=== PATIENT | male | born 1950 | race Two or more races ===

== ENCOUNTER → 2017-04-23 | Outpatient (CLI) | payer OTHER ==
[2017-04-23 08:43] LABS: Basophils # (auto) 0.1 uL; Basophils % (auto) 1.8 % (0.0-2.0); Eosinophils # (auto) 0.4 uL; Eosinophils % (auto) 8.9 % (0.0-7.0); Hemoglobin 15.8 g/dL (13.5-17.5); Lymphocytes # (auto) 1.2 uL; Lymphocytes % (auto) 26.1 % (10.0-50.0); Mean Corpuscular Hemoglobin 32.4 pg (28.0-32.0); Mean Corpuscular Hgb Conc. 33.7 g/dL (32.0-36.0); Mean Corpuscular Volume 96.2 fL (80.0-100.0); Monocytes # (auto) 0.4 uL; Monocytes % (auto) 7.9 % (0.0-12.0); Neutrophils # (auto) 2.5 uL; Neutrophils % (auto) 55.3 % (37.0-80.0); Nucleated Red Blood Cells % 0.1 %; Platelet Count (auto) 174 10^3/uL (140-450); Red Blood Cells 4.89 10^6/uL (4.5-5.90); Red Cell Distribution Width 13.5 % (11.8-14.3); White Blood Cell 4.5 10^3/uL (4.4-10.8)
[2017-04-23 08:46] LABS: Urine Bacteria NONE SEEN /hpf (None Seen); Urine Blood Negative /uL (Negative); Urine Specific Gravity 1.019 (1.001-1.035); Urine WBC <1 /hpf (0 - 3)
[2017-04-23 09:26] LABS: Prostate Specific Antigen 0.86 ng/mL (0.0-4.0)
[2017-04-23 09:39] LABS: Albumin 4.1 g/dL (3.4-5.0); BUN/Creatinine Ratio 16.8; Bilirubin, Total 1.3 mg/dL (0.2-1.0); Calcium 9.2 mg/dL (8.5-10.1); Potassium 4.1 mmol/L (3.5-5.1); Total Protein 7.6 g/dL (6.4-8.2)
== END | disposition home or self-care (01) ==
LOC: LAB 08:23
PROVIDERS: ATTEND Family Medicine
DX: N41.9 Inflammatory disease of prostate, unspecified (principal); Z87.438 Personal history of other diseases of male genital organs
CPT/HCPCS: 36415; 80053; 80061; 81001; 82607; 84153; 84443; 85025

== ENCOUNTER → 2017-06-02 | Outpatient (CLI) | payer OTHER ==
[2017-06-02 12:27] LABS: Albumin 4.2 g/dL (3.4-5.0); BUN/Creatinine Ratio 16.2; Bilirubin, Total 1.6 mg/dL (0.2-1.0); Calcium 8.6 mg/dL (8.5-10.1); Potassium 3.9 mmol/L (3.5-5.1); Total Protein 7.3 g/dL (6.4-8.2)
[2017-06-03 10:09] LABS: Hepatitis B Surface Antibody Negative
[2017-06-03 10:11] LABS: Hepatitis A Total Antibody Positive
[2017-06-03 11:23] LABS: Hepatitis B Surface Antigen Negative (Negative)
[2017-06-03 11:24] LABS: Hepatitis B Core Total AB Negative; Hepatitis C Antibody Negative (Negative)
== END | disposition home or self-care (01) ==
LOC: LAB 11:29
PROVIDERS: ATTEND Family Medicine
DX: Z20.5 Contact with and (suspected) exposure to viral hepatitis (principal)
CPT/HCPCS: 36415; 80053; 86704; 86706; 86708; 86803; 87340

== ENCOUNTER → 2018-12-29 | Outpatient (CLI) | payer OTHER ==
[2018-12-29 07:51] LABS: Basophils # (auto) 0.1 uL; Basophils % (auto) 1.7 % (0.0-2.0); Eosinophils # (auto) 0.3 uL; Eosinophils % (auto) 6.5 % (0.0-7.0); Hemoglobin 15.1 g/dL (13.5-17.5); Lymphocytes % (auto) 25.4 % (10.0-50.0); Mean Corpuscular Hemoglobin 33.5 pg (28.0-32.0); Mean Corpuscular Hgb Conc. 34.3 g/dL (32.0-36.0); Mean Corpuscular Volume 97.6 fL (80.0-100.0); Monocytes # (auto) 0.4 uL; Monocytes % (auto) 8.9 % (0.0-12.0); Neutrophils # (auto) 2.3 uL; Neutrophils % (auto) 57.5 % (37.0-80.0); Nucleated Red Blood Cells % 0.1 %; Platelet Count (auto) 147 10^3/uL (140-450); Red Blood Cells 4.51 10^6/uL (4.5-5.90); Red Cell Distribution Width 13.4 % (11.8-14.3); White Blood Cell 3.9 10^3/uL (4.4-10.8)
[2018-12-29 08:31] LABS: Albumin 3.8 g/dL (3.4-5.0); BUN/Creatinine Ratio 22.1; Bilirubin, Direct 0.3 mg/dL (0-0.2); Bilirubin, Total 1.2 mg/dL (0.2-1.0); Calcium 8.5 mg/dL (8.5-10.1)
== END | disposition home or self-care (01) ==
LOC: LAB 07:10
DX: Z00.00 Encounter for general adult medical examination without abnormal findings (principal); E55.9 Vitamin D deficiency, unspecified; R36.1 Hematospermia; N40.0 Benign prostatic hyperplasia without lower urinary tract symptoms
CPT/HCPCS: 36415; 80053; 80061; 80076; 82306; 83036; 84153; 84443; 85025

== ENCOUNTER → 2019-01-04 | Outpatient (CLI) | payer OTHER | END | disposition home or self-care (01) | LOC: LAB 10:21 | DX: Z00.00 Encounter for general adult medical examination without abnormal findings (principal); E55.9 Vitamin D deficiency, unspecified; R36.1 Hematospermia; N40.0 Benign prostatic hyperplasia without lower urinary tract symptoms | CPT/HCPCS: 82270 ==

== ENCOUNTER → 2019-03-03 | Outpatient (CLI) | payer OTHER ==
[2019-03-03 09:12] LABS: Urine WBC None Seen /hpf (0 - 3)
[2019-03-03 09:51] LABS: Urine Bacteria NONE SEEN /hpf (None Seen); Urine Blood Negative /uL (Negative); Urine Mucus FEW (None Seen)
== END | disposition home or self-care (01) ==
LOC: LAB 09:03
PROVIDERS: ATTEND Internal Medicine
DX: R73.03 Prediabetes (principal); N40.0 Benign prostatic hyperplasia without lower urinary tract symptoms
CPT/HCPCS: 36415; 81001; 82043; 83036

== ENCOUNTER → 2019-03-10 | Outpatient (CLI) | payer OTHER | END | disposition home or self-care (01) | LOC: LAB 09:27 | PROVIDERS: ATTEND Urology | DX: R35.1 Nocturia (principal) | CPT/HCPCS: 87086 ==

== ENCOUNTER → 2019-04-06 | Outpatient (CLI) | payer OTHER | END | disposition home or self-care (01) | LOC: LAB 10:28 | PROVIDERS: ATTEND Urology | DX: R97.20 Elevated prostate specific antigen [PSA] (principal) | CPT/HCPCS: 84154 ==

== ENCOUNTER 2019-04-13 14:20 | Inpatient (IN) | payer OTHER ==
[~2019-04-13] VITALS: Ht 167.6 cm; Wt 75.2 kg
[2019-04-13] MEDS ORDERED: HYDROcodone-ACET 5/325MG TAB PO ONE (15:45)
[2019-04-13 16:19] LABS: Basophils # (auto) 0.1 uL; Basophils % (auto) 1.1 % (0.0-2.0); Eosinophils # (auto) 0.3 uL; Eosinophils % (auto) 6.4 % (0.0-7.0); Hematocrit 44.7 % (41.0-53.0); Hemoglobin 15.4 g/dL (13.5-17.5); Lymphocytes # (auto) 1.5 uL; Lymphocytes % (auto) 28.8 % (10.0-50.0); Mean Corpuscular Hemoglobin 33.2 pg (28.0-32.0); Mean Corpuscular Hgb Conc. 34.4 g/dL (32.0-36.0); Mean Corpuscular Volume 96.3 fL (80.0-100.0); Monocytes # (auto) 0.4 uL; Monocytes % (auto) 8.2 % (0.0-12.0); Neutrophils # (auto) 2.8 uL; Neutrophils % (auto) 55.5 % (37.0-80.0); Nucleated Red Blood Cells % 0.1 %; Platelet Count (auto) 148 10^3/uL (140-450); Red Blood Cells 4.64 10^6/uL (4.5-5.90); Red Cell Distribution Width 13.1 % (11.8-14.3); White Blood Cell 5.1 10^3/uL (4.4-10.8)
[2019-04-13 16:35] LABS: Albumin 3.9 g/dL (3.4-5.0); Calcium 8.6 mg/dL (8.5-10.1); Potassium 4.1 mmol/L (3.5-5.1)
[2019-04-13 16:37] LABS: BUN/Creatinine Ratio 21.7
[2019-04-13 16:40] LABS: Bilirubin, Total 1.3 mg/dL (0.2-1.0); Total Protein 7.4 g/dL (6.4-8.2)
[2019-04-13] MEDS ORDERED: MORPHINE SULFATE 4 MG/ML SYR/VIAL IV ONE (20:00)
[2019-04-13] MEDS ORDERED: ONDANSETRON HCL 4 MG/2 ML VIAL IV ONE (20:00)
[2019-04-13] MEDS ORDERED: TEMAZEPAM 15 MG CAP PO PRN (20:15)
[2019-04-13] MEDS ORDERED: ACETAMINOPHEN 325 MG TAB PO PRN (20:15)
[2019-04-13] MEDS ORDERED: ONDANSETRON HCL 4 MG/2 ML VIAL IV PRN (20:15)
[2019-04-13] MEDS ORDERED: NITROGLYCERIN 0.4 MG SL TAB SL PRN (21:00)
[2019-04-13] MEDS ORDERED: MORPHINE SULF INJ 2 MG/ML SYRINGE 1ML IV PRN (21:00)
[2019-04-13 22:30] VITALS: BP 106/47
[2019-04-13] MEDS: FAMOTIDINE 20 MG TAB PO SCH (22:35)
[2019-04-13 23:12] VITALS: BP 106/47
[2019-04-13] MEDS ORDERED: LISI2.5T47 PO (23:39)
[2019-04-14] VITALS (8 sets, daily range): BP systolic 105–134; BP diastolic 44–84
[2019-04-14] MEDS ORDERED: PNEUMOCOCCAL VACC POLYS 25 MCG/0.5 ML VIAL IM ONE (01:45)
[2019-04-14] MEDS: SUMAtriptan SUCCINATE 25 MG TAB PO PRN ×2 (02:35→04:42)
[2019-04-14 07:06] LABS: BUN/Creatinine Ratio 19.6; Calcium 8.7 mg/dL (8.5-10.1); Potassium 4.4 mmol/L (3.5-5.1)
[2019-04-14] MEDS ORDERED: LORazepam 2MG/ML-1ML VIAL IV ONE (10:30)
[2019-04-14] MEDS: FAMOTIDINE 20 MG TAB PO SCH ×2 (11:00→22:03)
[2019-04-15] VITALS (8 sets, daily range): BP systolic 90–121; BP diastolic 32–76
[2019-04-15] MEDS: FAMOTIDINE 20 MG TAB PO SCH ×2 (09:51→21:58)
[2019-04-15] MEDS: LISINOPRIL 5 MG TAB PO SCH (09:52)
[2019-04-15] MEDS ORDERED: HYDROcodone-ACET 5/325MG TAB PO PRN (10:45)
[2019-04-15] MEDS ORDERED: MORPHINE SULF INJ 2 MG/ML SYRINGE 1ML IV PRN (10:45)
[2019-04-15 21:27] LABS: Urine Bacteria NONE SEEN /hpf (None Seen); Urine Blood Negative /uL (Negative); Urine Specific Gravity 1.012 (1.001-1.035); Urine WBC <1 /hpf (0 - 3)
[2019-04-15] MEDS: SODIUM CHLORIDE 0.9% 1,000 ML IV SCH (21:57)
[2019-04-15] MEDS: METOCLOPRAMIDE HCL 10 MG TAB PO SCH (21:57)
[2019-04-16 05:00] VITALS: BP_SYST 100; BP_SYST 101; BP_SYST 92; BP_DIAS 59; BP_DIAS 70; BP_DIAS 73
[2019-04-16] MEDS: METOCLOPRAMIDE HCL 10 MG TAB PO SCH ×3 (05:39→21:43)
[2019-04-16 08:00] VITALS: BP 95/63
[2019-04-16 09:00] VITALS: BP 95/63
[2019-04-16] MEDS: LISINOPRIL 5 MG TAB PO SCH (10:00)
[2019-04-16] MEDS: FAMOTIDINE 20 MG TAB PO SCH ×2 (10:25→21:42)
[2019-04-16] MEDS: DexAMETHasone INJECTION 10 MG in D5W 5% 50 ML IV SCH (10:25)
[2019-04-16] MEDS: SODIUM CHLORIDE 0.9% 1,000 ML IV SCH ×2 (10:26→21:46)
[2019-04-16 13:00] VITALS: BP 109/67
[2019-04-16] MEDS ORDERED: LISINOPRIL 5 MG TAB PO ONE (14:15)
[2019-04-16] MEDS ORDERED: FAMOTIDINE 20 MG TAB PO ONE (14:15)
[2019-04-16 17:09] VITALS: BP 96/56
[2019-04-16 22:00] VITALS: BP 134/78
[2019-04-16] MEDS ORDERED: TIZANIDINE HCL 2 MG PO SCH (22:00)
[2019-04-17 05:00] VITALS: BP 108/72
[2019-04-17] MEDS: METOCLOPRAMIDE HCL 10 MG TAB PO SCH ×2 (05:38→14:00)
[2019-04-17] MEDS ORDERED: ADENOSINE 63 MG in GIVE UN-DILUTED 0 ML IV STA (08:40)
[2019-04-17 09:00] VITALS: BP 106/64
[2019-04-17] MEDS: LISINOPRIL 5 MG TAB PO SCH (10:00)
[2019-04-17 10:20] VITALS: BP 135/84
[2019-04-17] MEDS: DexAMETHasone INJECTION 10 MG in D5W 5% 50 ML IV SCH (12:02)
[2019-04-17] MEDS: FAMOTIDINE 20 MG TAB PO SCH (12:02)
[2019-04-17] MEDS: SODIUM CHLORIDE 0.9% 1,000 ML IV SCH (12:03)
[2019-04-17 13:00] VITALS: BP 113/68
[2019-04-17 13:24] VITALS: BP 113/68
[2019-04-17] MEDS ORDERED: TIZANIDINE HCL 2 MG PO SCH (22:00)
== END 2019-04-17 14:15 | disposition home or self-care (01) | DRG 103 ==
LOC: ER 14:20 → TELE 14:21 → TELE-CENTR 22:50
PROVIDERS: ADMIT Nurse Practitioner; ATTEND Internal Medicine
DX: G43.009 Migraine without aura, not intractable, without status migrainosus (principal); I10 Essential (primary) hypertension; G47.00 Insomnia, unspecified; R00.1 Bradycardia, unspecified; N40.0 Benign prostatic hyperplasia without lower urinary tract symptoms; F17.210 Nicotine dependence, cigarettes, uncomplicated
CPT/HCPCS: 36415; 70450; 70551; 71045; 78452; 80048; 80053; 81001; 82533; 83880; 84443; 84484; 85025; 85652; 93017; 93306; 93886; 96361; 96374; 96375; G0378; J0153; J1100; J2405; J7060

== ENCOUNTER → 2019-04-13 | Outpatient (CLI) | payer OTHER ==
[~2019-04-13] MED LIST: LISI2.5T47 PO
[2019-04-13 11:35] LABS: Albumin 3.9 g/dL (3.4-5.0); Calcium 8.7 mg/dL (8.5-10.1); Potassium 4.1 mmol/L (3.5-5.1)
[2019-04-13 11:39] LABS: BUN/Creatinine Ratio 18.9; Bilirubin, Total 1.7 mg/dL (0.2-1.0); Total Protein 7.3 g/dL (6.4-8.2)
== END | disposition home or self-care (01) ==
LOC: LAB 10:47
PROVIDERS: ATTEND Internal Medicine
DX: I10 Essential (primary) hypertension (principal); R07.9 Chest pain, unspecified; R73.03 Prediabetes; R06.02 Shortness of breath
CPT/HCPCS: 36415; 80053; 83880; 84443; 85379

== ENCOUNTER → 2019-06-19 | Outpatient (CLI) | payer OTHER | END | disposition home or self-care (01) | LOC: LAB 14:51 | PROVIDERS: ATTEND Urology | DX: N50.819 Testicular pain, unspecified (principal) | CPT/HCPCS: 84153 ==

== ENCOUNTER → 2019-07-05 | Outpatient (CLI) | payer OTHER | END | disposition home or self-care (01) | LOC: LAB 11:36 | PROVIDERS: ATTEND Internal Medicine | DX: N50.819 Testicular pain, unspecified (principal) | CPT/HCPCS: 36415; 85652; 86038; 86141 ==

== ENCOUNTER 2019-07-28 22:09 | Emergency (ER) | payer OTHER ==
[~2019-07-28] VITALS: Ht 167.6 cm; Wt 74.8 kg
[2019-07-29] MEDS ORDERED: TETANUS-DIPTH-ACEL PERTUSSIS 0.5ML SYR Tdap IM ONE (02:00)
[2019-07-29 02:27] VITALS: BP 160/82
== END 2019-07-29 02:29 | disposition home or self-care (01) ==
LOC: ER 22:12
DX: Z48.00 Encounter for change or removal of nonsurgical wound dressing (principal); I11.0 Hypertensive heart disease with heart failure; I50.9 Heart failure, unspecified
CPT/HCPCS: 73630; 90471; 90715

== ENCOUNTER → 2019-08-09 | Outpatient (CLI) | payer OTHER ==
[~2019-08-09] MED LIST changes: +ALBUTEROL SULF 2.5 MG/0.5ML(0.5%) NEB SOLN ONE
== END | disposition home or self-care (01) ==
LOC: RT 08:43
PROVIDERS: ATTEND Internal Medicine Pulmonary Disease
DX: J44.9 Chronic obstructive pulmonary disease, unspecified (principal); R06.00 Dyspnea, unspecified
CPT/HCPCS: 94060; 94618; 94727; 94729

== ENCOUNTER → 2019-10-05 | Outpatient (CLI) | payer OTHER ==
[~2019-10-05] MED LIST changes: -ALBUTEROL SULF 2.5 MG/0.5ML(0.5%) NEB SOLN ONE
== END | disposition home or self-care (01) ==
LOC: LAB 14:19
PROVIDERS: ATTEND Urology
DX: C61 Malignant neoplasm of prostate (principal); N40.0 Benign prostatic hyperplasia without lower urinary tract symptoms; N41.0 Acute prostatitis
CPT/HCPCS: 84153

== ENCOUNTER 2020-08-21 19:31 | Emergency (ER) | payer OTHER ==
[~2020-08-21] VITALS: Ht 167.6 cm; Wt 72.6 kg
[2020-08-21 20:49] LABS: Eosinophils # (auto) 0.4 10 ^3/uL (0-0.8); Hemoglobin 15.4 g/dL (13.5-17.5); Monocytes # (auto) 0.5 10 ^3/uL (0-1.3)
[2020-08-21 20:52] LABS: Basophils # (auto) 0.1 10 ^3/uL (0-0.2); Eosinophils % (auto) 6.7 % (0.0-7.0); Lymphocytes # (auto) 1.5 10 ^3/uL (0.4-5.4); Lymphocytes % (auto) 23.6 % (10.0-50.0); Mean Corpuscular Hemoglobin 35.1 pg (28.0-32.0); Mean Corpuscular Hgb Conc. 35.8 g/dL (32.0-36.0); Monocytes % (auto) 8.6 % (0.0-12.0); Neutrophils # (auto) 3.7 10 ^3/uL (1.6-8.6); Neutrophils % (auto) 60.1 % (37.0-80.0); Nucleated Red Blood Cells % 0.2 %; Platelet Count (auto) 156 10^3/uL (140-450); Red Blood Cells 4.38 10^6/uL (4.5-5.90); White Blood Cell 6.1 10^3/uL (4.4-10.8)
[2020-08-21 21:15] LABS: Chloride 107 mmol/L (98-107); Sodium 141 mmol/L (136-145)
[2020-08-21 21:25] LABS: Alanine Aminotransferase 40 U/L (16-61); Alkaline Phosphatase 80 U/L (45-117); Anion Gap 9 (5-15); Aspartate Aminotransferase 25 U/L (15-37); BUN/Creatinine Ratio 17.1; Blood Urea Nitrogen 21 mg/dL (7-18); Calcium 8.7 mg/dL (8.5-10.1); Carbon Dioxide 25 mmol/L (21-32); GFR African American 75 mL/min; GFR Non-African American 62 mL/min; Glucose 87 mg/dL (74-106); Total Protein 7.4 g/dL (6.4-8.2)
[2020-08-21 22:44] VITALS: BP 157/94
== END 2020-08-21 22:47 | disposition home or self-care (01) ==
LOC: ER 19:31
DX: G44.209 Tension-type headache, unspecified, not intractable (principal); R79.89 Other specified abnormal findings of blood chemistry; I10 Essential (primary) hypertension; F17.290 Nicotine dependence, other tobacco product, uncomplicated
CPT/HCPCS: 36415; 71046; 80053; 83880; 84484; 85025; 85049; 93005

== ENCOUNTER → 2020-08-28 | Outpatient (CLI) | payer OTHER | END | disposition home or self-care (01) | LOC: LAB 10:39 | PROVIDERS: ATTEND Internal Medicine | DX: R06.02 Shortness of breath (principal) | CPT/HCPCS: 36415; 85379 ==

== ENCOUNTER → 2020-12-02 | Outpatient (CLI) | payer OTHER ==
[~2020-12-02] MED LIST changes: +ALBUAER3 IN; +ASPI1TAB19 PO; +DIPH25CA66 PO; +FAMO20TA10 PO; +LOSA25TA38 PO; +NITR0.4S29 SL; +PRED20TA2 PO; +RANO500T2 PO
[2020-12-02 10:16] LABS: Basophils # (auto) 0.1 10 ^3/uL (0-0.2); Basophils % (auto) 0.8 % (0.0-2.0); Eosinophils # (auto) 0.2 10 ^3/uL (0-0.8); Eosinophils % (auto) 2.2 % (0.0-7.0); Hematocrit 44.9 % (41.0-53.0); Hemoglobin 15.2 g/dL (13.5-17.5); Lymphocytes # (auto) 1.7 10 ^3/uL (0.4-5.4); Lymphocytes % (auto) 22.1 % (10.0-50.0); Mean Corpuscular Hemoglobin 32.8 pg (28.0-32.0); Mean Corpuscular Hgb Conc. 33.9 g/dL (32.0-36.0); Mean Corpuscular Volume 96.8 fL (80.0-100.0); Monocytes # (auto) 0.5 10 ^3/uL (0-1.3); Monocytes % (auto) 6.9 % (0.0-12.0); Neutrophils # (auto) 5.3 10 ^3/uL (1.6-8.6); Red Blood Cells 4.64 10^6/uL (4.5-5.90); Red Cell Distribution Width 13.6 % (11.8-14.3); White Blood Cell 7.8 10^3/uL (4.4-10.8)
[2020-12-02 10:40] LABS: INR 1.05 (0.9-1.15); Partial Thromboplastin Time 25.6 sec (23.6-33.0)
[2020-12-02 10:57] LABS: Albumin 3.7 g/dL (3.4-5.0); Calcium 8.5 mg/dL (8.5-10.1); Potassium 3.5 mmol/L (3.5-5.1)
[2020-12-02 11:01] LABS: Bilirubin, Total 1.3 mg/dL (0.2-1.0); Total Protein 7.2 g/dL (6.4-8.2)
== END | disposition home or self-care (01) ==
LOC: LAB 10:03
PROVIDERS: ATTEND Internal Medicine
DX: Z01.812 Encounter for preprocedural laboratory examination (principal)
CPT/HCPCS: 36415; 80053; 85025; 85610; 85730

== ENCOUNTER 2020-12-04 08:15 | Day surgery (SDC) | payer OTHER ==
[~2020-12-04] VITALS: Ht 167.6 cm; Wt 75.7 kg
[~2020-12-04 08:15] MED LIST changes: -LISI2.5T47 PO
[2020-12-04] MEDS ORDERED: fentaNYL CITRATE 100 MCG/2 ML VL ONE (13:54)
[2020-12-04] MEDS ORDERED: ANGIOMAX 250 MG VIAL IV ONE (13:54)
[2020-12-04] MEDS ORDERED: HEPARIN SODIUM (PORCINE) 5000 UNITS/ML 1ML VIAL ONE (13:54)
[2020-12-04] MEDS ORDERED: VERAPAMIL 2.5MG/ML INJ 2ML VIAL IV ONE (13:54)
[2020-12-04] MEDS ORDERED: MIDAZOLAM HCL 2MG/2ML 2ml VIAL (1mg/ml) ONE (13:55)
[2020-12-04] MEDS ORDERED: LIDOCAINE 2%HCL (LOCAL ANESTH.) INJ 20ML MDV ONE (13:55)
[2020-12-04] MEDS ORDERED: IODIXANOL 320MG/ML 100ML BTL IV ONE (13:55)
[2020-12-04] MEDS ORDERED: SODIUM CHL 0.9% 0 ML ONE (13:55)
[2020-12-04] MEDS ORDERED: ATROPINE SULF 1 MG/10ml SYR ONE (14:28)
== END 2020-12-04 17:02 | disposition home or self-care (01) ==
LOC: CATH 08:15
PROVIDERS: ATTEND Internal Medicine
DX: R94.39 Abnormal result of other cardiovascular function study (principal); Z98.890 Other specified postprocedural states; Z91.041 Radiographic dye allergy status; Z79.899 Other long term (current) drug therapy; Z20.822 Contact with and (suspected) exposure to COVID-19
CPT/HCPCS: 93458; C1887; C1894; J1644; J2250; J3010; Q9967; U0003; 99152; 99153

== ENCOUNTER → 2021-04-10 | Outpatient (CLI) | payer OTHER ==
[~2021-04-10] MED LIST changes: +ALBUTEROL SULF 2.5 MG/0.5ML(0.5%) NEB SOLN ONE; -DIPH25CA66 PO; -FAMO20TA10 PO; -PRED20TA2 PO
== END | disposition home or self-care (01) ==
LOC: RT 08:07
PROVIDERS: ATTEND Internal Medicine
DX: R06.02 Shortness of breath (principal); Z20.822 Contact with and (suspected) exposure to COVID-19
CPT/HCPCS: 36415; 94060; 94727; 94729

== ENCOUNTER → 2021-05-07 | Outpatient (CLI) | payer OTHER ==
[~2021-05-07] MED LIST changes: -ALBUTEROL SULF 2.5 MG/0.5ML(0.5%) NEB SOLN ONE
[2021-05-07 12:05] LABS: Urine WBC None Seen /hpf (0 - 3)
[2021-05-07 12:10] LABS: Basophils # (auto) 0.1 10 ^3/uL (0-0.2); Basophils % (auto) 1.3 % (0.0-2.0); Eosinophils # (auto) 0.4 10 ^3/uL (0-0.8); Eosinophils % (auto) 6.9 % (0.0-7.0); Hematocrit 44.6 % (41.0-53.0); Hemoglobin 15.4 g/dL (13.5-17.5); Lymphocytes # (auto) 1.4 10 ^3/uL (0.4-5.4); Lymphocytes % (auto) 27.2 % (10.0-50.0); Mean Corpuscular Hemoglobin 33.3 pg (28.0-32.0); Mean Corpuscular Hgb Conc. 34.5 g/dL (32.0-36.0); Mean Corpuscular Volume 96.4 fL (80.0-100.0); Monocytes # (auto) 0.4 10 ^3/uL (0-1.3); Monocytes % (auto) 8.4 % (0.0-12.0); Neutrophils # (auto) 2.9 10 ^3/uL (1.6-8.6); Neutrophils % (auto) 56.2 % (37.0-80.0); Nucleated Red Blood Cells % 0.1 %; Red Blood Cells 4.63 10^6/uL (4.5-5.90); Red Cell Distribution Width 14.2 % (11.8-14.3); White Blood Cell 5.2 10^3/uL (4.4-10.8)
[2021-05-07 12:37] LABS: Urine Bacteria NONE SEEN /hpf (None Seen); Urine Blood Negative /uL (Negative); Urine Specific Gravity 1.012 (1.001-1.035)
[2021-05-07 12:41] LABS: Albumin 3.7 g/dL (3.4-5.0); Calcium 8.6 mg/dL (8.5-10.1); Potassium 3.7 mmol/L (3.5-5.1)
[2021-05-07 12:45] LABS: BUN/Creatinine Ratio 18.1; Bilirubin, Total 1.4 mg/dL (0.2-1.0)
== END | disposition home or self-care (01) ==
LOC: LAB 11:27
PROVIDERS: ATTEND Internal Medicine
DX: Z00.00 Encounter for general adult medical examination without abnormal findings (principal); I10 Essential (primary) hypertension; R73.03 Prediabetes; F41.9 Anxiety disorder, unspecified
CPT/HCPCS: 36415; 80053; 80061; 81001; 82043; 83036; 84443; 85025

== ENCOUNTER → 2021-06-06 | Outpatient (CLI) | payer OTHER ==
[2021-06-06 07:21] LABS: Basophils # (auto) 0.1 10 ^3/uL (0-0.2); Basophils % (auto) 0.9 % (0.0-2.0); Eosinophils # (auto) 0.4 10 ^3/uL (0-0.8); Eosinophils % (auto) 7.6 % (0.0-7.0); Hematocrit 44.4 % (41.0-53.0); Hemoglobin 15.7 g/dL (13.5-17.5); Lymphocytes # (auto) 1.3 10 ^3/uL (0.4-5.4); Lymphocytes % (auto) 22.5 % (10.0-50.0); Mean Corpuscular Hemoglobin 34.1 pg (28.0-32.0); Mean Corpuscular Hgb Conc. 35.4 g/dL (32.0-36.0); Mean Corpuscular Volume 96.2 fL (80.0-100.0); Monocytes # (auto) 0.5 10 ^3/uL (0-1.3); Monocytes % (auto) 8.8 % (0.0-12.0); Neutrophils # (auto) 3.5 10 ^3/uL (1.6-8.6); Neutrophils % (auto) 60.2 % (37.0-80.0); Nucleated Red Blood Cells % 0.1 %; Red Blood Cells 4.61 10^6/uL (4.5-5.90); Red Cell Distribution Width 14.6 % (11.8-14.3); White Blood Cell 5.8 10^3/uL (4.4-10.8)
[2021-06-06 07:24] LABS: Urine Blood Negative /uL (Negative); Urine Specific Gravity 1.023 (1.001-1.035)
[2021-06-06 07:38] LABS: Albumin 3.6 g/dL (3.4-5.0); BUN/Creatinine Ratio 18.9; Calcium 8.7 mg/dL (8.5-10.1); Potassium 3.8 mmol/L (3.5-5.1)
[2021-06-06 07:39] LABS: INR 1.05 (0.9-1.15); Partial Thromboplastin Time 27.9 sec (23.6-33.0)
[2021-06-06 07:41] LABS: Bilirubin, Total 1.2 mg/dL (0.2-1.0)
== END | disposition home or self-care (01) ==
LOC: LAB 06:39
PROVIDERS: ATTEND Internal Medicine
DX: Z01.812 Encounter for preprocedural laboratory examination (principal); H25.11 Age-related nuclear cataract, right eye; D68.9 Coagulation defect, unspecified; Z79.01 Long term (current) use of anticoagulants
CPT/HCPCS: 36415; 80053; 81003; 82270; 85025; 85610; 85730

== ENCOUNTER 2023-04-21 15:14 | Emergency (ER) | payer MEDICARE, OTHER ==
[~2023-04-21] VITALS: Ht 167.6 cm; Wt 71.3 kg
[~2023-04-21 15:14] MED LIST changes: +LOSA25TA15 PO; -LOSA25TA38 PO
[2023-04-21 15:23] VITALS: BP 148/86; RESP 18; O2SAT 96
[2023-04-21 15:38] VITALS: PULSE 77
[2023-04-21 16:36] LABS: Basophils # (auto) 0 10 ^3/uL (0-0.2); Basophils % (auto) 0.3 % (0.0-2.0); Eosinophils # (auto) 0.2 10 ^3/uL (0-0.8); Hematocrit 46.8 % (41.0-53.0); Hemoglobin 15.9 g/dL (13.5-17.5); Lymphocytes # (auto) 0.7 10 ^3/uL (0.4-5.4); Lymphocytes % (auto) 8.5 % (10.0-50.0); Mean Corpuscular Hemoglobin 34.1 pg (28.0-32.0); Mean Corpuscular Volume 100.3 fL (80.0-100.0); Monocytes # (auto) 0.9 10 ^3/uL (0-1.3); Monocytes % (auto) 10.3 % (0.0-12.0); Neutrophils # (auto) 6.5 10 ^3/uL (1.6-8.6); Neutrophils % (auto) 77.9 % (37.0-80.0); Nucleated Red Blood Cells % 0.1 %; Red Blood Cells 4.66 10^6/uL (4.5-5.90); Red Cell Distribution Width 14.2 % (11.8-14.3); White Blood Cell 8.3 10^3/uL (4.4-10.8)
[2023-04-21 16:40] LABS: Alanine Aminotransferase 20 U/L (7-40); Albumin 4.5 g/dL (3.2-4.8); Alkaline Phosphatase 99 U/L (46-116); Anion Gap 3 (5-15); Aspartate Aminotransferase 18 U/L (13-40); BUN/Creatinine Ratio 12.4 (10.0-20.0); Blood Urea Nitrogen 12 mg/dL (9-23); Calcium 9.5 mg/dL (8.5-10.1); Carbon Dioxide 29 mmol/L (20-30); Chloride 105 mmol/L (98-107); Glucose 96 mg/dL (74-106); Potassium 3.9 mmol/L (3.5-5.1); Sodium 137 mmol/L (136-145)
[2023-04-21 16:41] LABS: Bilirubin, Total 1.2 mg/dL (0.2-1.0)
[2023-04-21] MEDS ORDERED: ACETAMINOPHEN 500 MG TAB PO ONE (18:30)
== END 2023-04-21 20:58 | disposition home or self-care (01) ==
LOC: ER 15:14
DX: B34.9 Viral infection, unspecified (principal); I10 Essential (primary) hypertension; Z87.891 Personal history of nicotine dependence; Z79.899 Other long term (current) drug therapy
CPT/HCPCS: 36415; 71045; 80053; 83605; 84484; 85025; 87040; 93005